=== PATIENT | male | born 1985 | race Caucasian/White ===

== ENCOUNTER 2017-09-26 08:04 | Emergency (ER) | payer SELFPAY, OTHER ==
[2017-09-26] MEDS: KETOROLAC 30 MG INJ IM (08:49)
== END 2017-09-26 08:59 | disposition home or self-care (01) ==
LOC: FTE 08:04
DX: K08.89 Other specified disorders of teeth and supporting structures (principal); J45.909 Unspecified asthma, uncomplicated; F17.210 Nicotine dependence, cigarettes, uncomplicated
CPT/HCPCS: 96372; 99284-25